=== PATIENT | female | born 1990 | race Two or more races ===

== ENCOUNTER 2020-12-17 06:11 | Inpatient (IN) | payer OTHER ==
[~2020-12-17] VITALS: Ht 157.5 cm; Wt 112.7 kg
[2020-12-17] MEDS ORDERED: FENTANYL PF 100 MCG/2ML IVPush PRN (06:30)
[2020-12-17] MEDS ORDERED: ONDANSETRON 2MG/ML, 2ML IVPush PRN (06:30)
[2020-12-17] MEDS ORDERED: TERBUTALINE 1 MG/ML, 1ML SQ PRN (06:30)
[2020-12-17] MEDS ORDERED: OXYTOCIN 30U/ 0.9% NaCL 500ML 500 ML IV PRN (06:30)
[2020-12-17] MEDS ORDERED: OXYTOCIN 30U/ 0.9% NaCL 500ML 500 ML IV ONE (06:30)
[2020-12-17] MEDS ORDERED: ALUMINUM/MAG/SIMETHICONE 30 ML UDC PO PRN (06:30)
[2020-12-17] MEDS ORDERED: TERBUTALINE 1 MG/ML, 1ML IVPush PRN (06:30)
[2020-12-17 06:32] VITALS: BP 124/72
[2020-12-17] MEDS ORDERED: NEWBORN KIT ONE (06:34)
[2020-12-17 06:42] LABS: MICROSCOPIC INDICATED
[2020-12-17] MEDS ORDERED: PREN1TAB62 PO (06:42)
[2020-12-17] MEDS ORDERED: FLU VACC QS2020-21(6MOS UP)/PF 60MCG/0.5 ML SYR IM ONE (07:00)
[2020-12-17 07:09] LABS: ALANINE AMINOTRANSFERASE 21 U/L (12-78); ALBUMIN 2.7 g/dL (3.4-5.0); ANION GAP 7 mmol/L (5-15); BASOPHILS % (AUTO) 0 % (0-1); CALCIUM 8.7 mg/dL (8.5-10.1); CHLORIDE 112 mmol/L (98-107); CREATININE 0.64 mg/dL (0.55-1.02); EOSINOPHILS % (AUTO) 1 % (1-7); LYMPHOCYTES % (AUTO) 22 % (22-44); MEAN CORPUSCULAR HEMOGLOBIN 27.2 pg (27.0-34.8); MEAN CORPUSCULAR HGB CONC 33.2 g/dL (32.4-35.8); MEAN PLATELET VOLUME 9.4 fL (7.4-10.4); MONOCYTES % (AUTO) 7 % (2-9); NEUTROPHILS % (AUTO) 70 % (42-75); PLATELET COUNT 251 x10^3/uL (130-400); RED BLOOD COUNT 3.98 x10^6/uL (3.82-5.3); RED CELL DISTRIBUTION WIDTH 14.9 % (9.6-15.2)
[2020-12-17] MEDS: LACTATED RINGERS 1,000 ML IV SCH ×2 (07:09→13:31)
[2020-12-17 07:11] LABS: ALKALINE PHOSPHATASE 157 U/L (45-117); BILIRUBIN,TOTAL 0.2 mg/dL (0.2-1.0); TOTAL PROTEIN 6.2 g/dL (6.4-8.2)
[2020-12-17 07:12] LABS: BILIRUBIN, DIRECT < 0.1 mg/dL (0.1-0.2)
[2020-12-17 07:17] LABS: MD NO
[2020-12-17] MEDS ORDERED: MISOPROSTOL 200 MCG TABLET ONE (07:36)
[2020-12-17] MEDS ORDERED: OXYTOCIN 30U/ 0.9% NaCL 500ML 500 ML ONE (07:36)
[2020-12-17] MEDS ORDERED: LIDOCAINE 1%, 20ML ONE (07:36)
[2020-12-17] MEDS ORDERED: FENTANYL PF 100 MCG/2ML ONE (14:23)
[2020-12-17] MEDS ORDERED: BUPIVACAINE 0.25% ONE (14:23)
[2020-12-17] MEDS ORDERED: FENTANYL/BUPIV./NS/PF 250 ML EPIDCONT ONE (14:23)
[2020-12-17] MEDS: D5%-LACTATED RINGERS 1,000 ML IV SCH ×2 (14:30→22:13)
[2020-12-18] MEDS ORDERED: OXYTOCIN 30U/ 0.9% NaCL 500ML 500 ML ONE (02:17)
[2020-12-18] MEDS ORDERED: MISOPROSTOL 200 MCG TABLET PR PRN (04:30)
[2020-12-18] MEDS ORDERED: SIMETHICONE 80 MG CHEW TAB PO PRN (04:30)
[2020-12-18] MEDS: OXYTOCIN 30U/ 0.9% NaCL 500ML 500 ML IV SCH ×2 (04:30→14:30)
[2020-12-18] MEDS ORDERED: ONDANSETRON 2MG/ML, 2ML IV PRN (04:30)
[2020-12-18] MEDS ORDERED: OXYcodone IR 5MG TABLET PO PRN (04:30)
[2020-12-18] MEDS ORDERED: ACETAMINOPHEN 325 MG TABLET PO PRN (04:30)
[2020-12-18] MEDS ORDERED: DOCUSATE 100 MG CAPSULE PO PRN (04:30)
[2020-12-18 04:50] VITALS: BP 120/77
[2020-12-18 08:15] VITALS: BP 131/78
[2020-12-18] MEDS ORDERED: PRENATAL VIT/IRON/FA 1 EACH TABLET PO SCH (09:00)
[2020-12-18 10:11] LABS: BASOPHILS % (AUTO) 0 % (0-1); EOSINOPHILS % (AUTO) 0 % (1-7); LYMPHOCYTES % (AUTO) 14 % (22-44); MEAN CORPUSCULAR HEMOGLOBIN 26.9 pg (27.0-34.8); MEAN PLATELET VOLUME 9.6 fL (7.4-10.4); MONOCYTES % (AUTO) 6 % (2-9); NEUTROPHILS % (AUTO) 80 % (42-75); PLATELET COUNT 206 x10^3/uL (130-400); RED CELL DISTRIBUTION WIDTH 15.5 % (9.6-15.2)
[2020-12-18 10:13] LABS: MD NO
[2020-12-18 11:45] VITALS: BP 129/86
[2020-12-18] MEDS: IBUPROFEN 600 MG TABLET PO PRN ×2 (11:45→19:38)
[2020-12-18 12:00] VITALS: BP 129/86
[2020-12-18] MEDS: OXYcodone/APAP 5/325MG TABLET PO PRN ×2 (14:55→19:38)
[2020-12-18 15:45] VITALS: BP 113/74
[2020-12-18] MEDS ORDERED: DIPH,PERTUSS(ACELL),TET VAC/PF NC IM-VACC ONE ×2 (16:51→17:00)
[2020-12-18 19:30] VITALS: BP 118/76
[2020-12-19] MEDS: OXYcodone/APAP 5/325MG TABLET PO PRN (00:08)
[2020-12-19 00:23] VITALS: BP 106/63
[2020-12-19] MEDS: OXYTOCIN 30U/ 0.9% NaCL 500ML 500 ML IV SCH (00:30)
[2020-12-19] MEDS: IBUPROFEN 600 MG TABLET PO PRN (02:45)
[2020-12-19 07:55] VITALS: BP 128/84
[2020-12-19] MEDS ORDERED: IBUP-1222 PO (10:56)
== END 2020-12-19 11:30 | disposition home or self-care (01) | DRG 768 ==
LOC: EDIP 06:11 → LDIP 06:17 → 2NW 12-18 04:40
PROVIDERS: ADMIT Obstetrics & Gynecology; ATTEND Obstetrics & Gynecology
PROC: 10E0XZZ Delivery of Products of Conception, External Approach (ICD-10-PCS; principal; 2020-12-18)
PROC: 0UCC7ZZ Extirpation of Matter from Cervix, Via Natural or Artificial Opening (ICD-10-PCS; 2020-12-18)
PROC: 0KQM0ZZ Repair Perineum Muscle, Open Approach (ICD-10-PCS; 2020-12-18)
PROC: 10907ZC Drainage of Amniotic Fluid, Therapeutic from Products of Conception, Via Natural or Artificial Opening (ICD-10-PCS; 2020-12-18)
PROC: 3E0R3BZ Introduction of Anesthetic Agent into Spinal Canal, Percutaneous Approach (ICD-10-PCS; 2020-12-18)
PROC: 00HU33Z Insertion of Infusion Device into Spinal Canal, Percutaneous Approach (ICD-10-PCS; 2020-12-18)
DX: O24.420 Gestational diabetes mellitus in childbirth, diet controlled (principal); Z37.0 Single live birth; O34.33 Maternal care for cervical incompetence, third trimester; Z3A.37 37 weeks gestation of pregnancy; Z20.822 Contact with and (suspected) exposure to COVID-19; Z88.2 Allergy status to sulfonamides; Z88.8 Allergy status to other drugs, medicaments and biological substances; O13.4 Gestational [pregnancy-induced] hypertension without significant proteinuria, complicating childbirth; O70.1 Second degree perineal laceration during delivery
CPT/HCPCS: 36415; J7121; 80053; 81001; 82248; 82570; 82962; 84156; 84550; 85025; 86592; 86850; 86900; 87086; 87635; 90686; 90715; G0378; J2590; J7120